=== PATIENT | female | born 1980 | race American Indian/Alaskan Native ===

== ENCOUNTER 2017-09-02 10:52 | Day surgery (SDC) | payer BC ==
--- NOTE | 2017-09-02 10:50 | Discharge Summary ---
Short Stay Discharge Plan Activity: no restrictions Weight Bearing Status: Full Weight Bearing Diet: regular Wound: remove dressing (72hrs) Follow up with: JOHNNA NAVARRO MD [Primary Care Provider] - 6 Weeks WORK,EVA Talley JR, MD [Staff Physician] - 7 Days
--- NOTE | 2017-09-02 10:51 | Short Stay Summary ---
Short Stay Documentation Date of service: 09/02/17 - Allergies and Medications Current Medications: Allergies No Known Allergies Allergy (Verified 08/30/17 14:37) Home Medications Medication Instructions Recorded Confirmed Last Taken Type Levothyroxine [Synthroid] 100 mcg PO QAM 06/13/17 08/30/17 Unknown History - Brief post op/procedure progress note Date of procedure: 09/02/17 Pre-op diagnosis: macromastia Post-op diagnosis: same Procedure: Ray. Breast Reduction Anesthesia: GETA Surgeon: EVA RUBALCAVA JR Estimated blood loss: 50-100ml Specimen disposition: to lab Condition: stable - Disposition Condition at discharge: Good Disposition: DC-01 TO HOME OR SELFCARE Short Stay Discharge Plan Follow up with: EVA RUBALCAVA JR, MD [Staff Physician] - 7 Days JOHNNA NAVARRO MD [Primary Care Provider] - 6 Weeks
--- NOTE | 2017-09-02 12:16 | Anesthesia Consultation ---
Anesthesia Consult and Med Hx Date of service: 09/02/17 - Airway Anesthetic Teeth Evaluation: Good ROM Head & Neck: Adequate Mental/Hyoid Distance: Adequate Mallampati Class: Class I Intubation Access Assessment: Good - Pulmonary Exam CTA: Yes - Cardiac Exam Cardiac Exam: RRR - Pre-Operative Health Status ASA Pre-Surgery Classification: ASA2 Proposed Anesthetic Plan: General - Pulmonary Hx Smoking: Yes (3-4 cigarettes per day, since 16) - Central Nervous System Hx Psychiatric Problems: No - Endocrine Hx Hypothyroidism: Yes - Other Systems Hx Alcohol Use: No Hx Substance Use: No Hx Cancer: No Hx Obesity: Yes - Additional Comments Anesthesia Medical History Comments: Informed consent obtained
--- NOTE | 2017-09-02 12:16 | Anesthesia Day of Surgery ---
Anesthesia Day of Surgery - Day of Surgery Patient Examined: Yes Patient H&P Reviewed: Yes Patient is NPO: Yes
[2017-09-02] MEDS ORDERED: ANCEF/STERILE WATER 2 GM/20 ML IV NR (13:00)
[2017-09-02] MEDS ORDERED: PEPCID IV NR (13:00)
[2017-09-02] MEDS ORDERED: NACL 0.9% 1000 ML 1,000 ML IV SCH (13:00)
[2017-09-02 13:17] LABS: Basophils # (Auto) 0.1 K/mm3 (0.0-0.1); Eosinophils # (Auto) 0.1 K/mm3 (0.0-0.4); Eosinophils % (Auto) 0.8 % (0.0-4.3); Hematocrit 40.2 % (30.3-42.9); Hemoglobin 13.5 gm/dl (10.1-14.3); Lymphocytes # (Auto) 2.4 K/mm3 (1.2-5.4); Lymphocytes % (Auto) 34.9 % (13.4-35.0); Mean Corpuscular HGB Conc 34 % (30-34); Mean Corpuscular Hemoglobin 31 pg (28-32); Mean Corpuscular Volume 94 fl (79-97); Monocytes # (Auto) 0.5 K/mm3 (0.0-0.8); Monocytes % (Auto) 7.4 % (0.0-7.3); Platelet Count 332 K/mm3 (140-440); Red Cell Distribution Width 13.5 % (13.2-15.2)
[2017-09-02] MEDS ORDERED: VERSED ONE (17:10)
[2017-09-02] MEDS ORDERED: DILAUDID ONE ×2 (17:27→17:51)
[2017-09-02] MEDS ORDERED: DIPRIVAN 10 MG/ML IV ONE (17:27)
[2017-09-02] MEDS ORDERED: XYLOCAINE MPF 2% ONE (17:30)
[2017-09-02] MEDS ORDERED: NACL 0.9% 1000 ML 1,000 ML ONE (18:13)
[2017-09-02] MEDS ORDERED: ZOFRAN ONE ×2 (18:26→20:13)
[2017-09-02] MEDS ORDERED: SUBLIMAZE ONE (18:58)
--- NOTE | 2017-09-02 19:15 | Post Anesthesia Evaluation ---
- Post Anesthesia Evaluation Patient Participated: Yes Airway Patent: Yes Stable Respiratory Function: Yes Nausea/Vomiting: No Temp > 96.8F: Yes Pain Manageable: Yes Adequeate Hydration: Yes Anesthesia Complications: No Block Receding Appropriately: Not Applicable Patient on Ventilator: No
[2017-09-02] MEDS: DILAUDID IV PRN ×2 (19:30→19:45)
[2017-09-02] MEDS ORDERED: ZOFRAN IV ONE (20:15)
--- NOTE | 2017-09-02 20:25 | Operative Report ---
PREOPERATIVE DIAGNOSIS: Macromastia. POSTOPERATIVE DIAGNOSIS: Macromastia. PROCEDURE: Bilateral breast reduction with nipple areolar complex amputation. SURGEON: Jose Rojas MD HOSE COUPLING JOINER: Gopi Long CSA FINDINGS: 1100 gm removed from the right breast, 1120 grams removed from the left breast. DESCRIPTION OF PROCEDURE: The patient was brought to the operating room and placed on the table in supine position. Following administration of general anesthesia, bilateral breasts were prepped with Betadine solution, draped in usual sterile manner. A #10 blade scalpel was used to make a circumareolar skin incision, followed by de-epithelization of inferior dermal pedicle. Modified Carrasco pattern skin markings were incised with scalpel, deepened through subcutaneous fat and breast tissue using the electrocautery. Skin flaps were raised in standard manner as was fashioning of an inferior central mound pedicle. Breast tissue was resected inclusive of the nipple areolar complexes bilaterally due to her increased risk of nipple areolar complex loss secondary to smoking. Hemostasis controlled using the electrocautery. Closure was performed over 10-mm Niko drain using interrupted and running subcuticular 2-0 Monocryl sutures. Mastisol, Steri-Strips, and sterile dressings applied. The patient tolerated the procedure well and returned to recovery room in stable condition. JOB# [id number] FTW/NTS
[2017-09-02] MEDS ORDERED: TRANSDERM-SCOP TD ONE (21:18)
[2017-09-02 22:51] VITALS: BP 105/71
== END 2017-09-02 21:30 | disposition home or self-care (01) ==
LOC: OR 10:52
PROVIDERS: ATTEND Plastic Surgery
DX: N62 Hypertrophy of breast (principal); E03.9 Hypothyroidism, unspecified; E66.9 Obesity, unspecified; F17.210 Nicotine dependence, cigarettes, uncomplicated; Z68.31 Body mass index [BMI] 31.0-31.9, adult
CPT/HCPCS: 19318; 36415; 81025; 85025; 88305; J0690; J1170; J2250; J2405; J2704; J3010; J7030

== ENCOUNTER 2017-12-02 05:42 | Day surgery (SDC) | payer BC ==
[2017-12-02] MEDS ORDERED: NACL BACTERIOSTATIC INFILTRATI ONE (06:49)
[2017-12-02] MEDS ORDERED: ANCEF/STERILE WATER 2 GM/20 ML IV NR (07:00)
--- NOTE | 2017-12-02 07:26 | Anesthesia Day of Surgery ---
Anesthesia Day of Surgery - Day of Surgery Patient Examined: Yes Patient H&P Reviewed: Yes Patient is NPO: Yes
--- NOTE | 2017-12-02 07:26 | Anesthesia Consultation ---
Anesthesia Consult and Med Hx Date of service: 12/02/17 - Airway Anesthetic Teeth Evaluation: Good ROM Head & Neck: Adequate Mental/Hyoid Distance: Adequate Mallampati Class: Class I Intubation Access Assessment: Good - Pulmonary Exam CTA: Yes - Cardiac Exam Cardiac Exam: RRR - Pre-Operative Health Status ASA Pre-Surgery Classification: ASA2 Proposed Anesthetic Plan: General - Pulmonary Hx Smoking: Yes (3-4CIG/DAYS SINCE AGE 16) - Central Nervous System Hx Psychiatric Problems: No - Endocrine Hx Hypothyroidism: Yes - Other Systems Hx Alcohol Use: No Hx Substance Use: No Hx Cancer: No Hx Obesity: Yes - Additional Comments Anesthesia Medical History Comments: Informed consent obtained
[2017-12-02] MEDS ORDERED: DIPRIVAN 10 MG/ML IV ONE (07:27)
[2017-12-02] MEDS ORDERED: SUBLIMAZE ONE (07:27)
[2017-12-02] MEDS ORDERED: XYLOCAINE MPF 2% ONE (07:29)
[2017-12-02] MEDS ORDERED: ZOFRAN ONE (07:29)
[2017-12-02] MEDS ORDERED: NACL 0.9% 1000 ML 1,000 ML IV SCH (08:00)
[2017-12-02] MEDS ORDERED: PEPCID IV NR (08:00)
[2017-12-02] MEDS ORDERED: VERSED IV NR (08:00)
[2017-12-02] MEDS ORDERED: TRANSDERM-SCOP TD NR (08:00)
[2017-12-02] MEDS ORDERED: NEO SYNEPHRINE/NS Syringe(OR USE) IV ONE (08:32)
--- NOTE | 2017-12-02 08:33 | Discharge Summary ---
Short Stay Discharge Plan Activity: no restrictions Weight Bearing Status: Full Weight Bearing Wound: remove dressing (5 days) Follow up with: EZIO JOHNSON [Other] - 6 Weeks WORK,EVA Talley JR, MD [Staff Physician] - 7 Days
--- NOTE | 2017-12-02 08:34 | Short Stay Summary ---
Short Stay Documentation Date of service: 12/02/17 - Allergies and Medications Current Medications: Allergies No Known Allergies Allergy (Verified 11/27/17 15:48) Home Medications Medication Instructions Recorded Confirmed Last Taken Type Levothyroxine [Synthroid] 100 mcg PO QAM 06/13/17 12/02/17 12/01/17 08:30 History Active Medications Cefazolin Sodium (Ancef/Sterile Water 2 Gm/20 Ml) 2 gm IV PREOP NR Stop: 12/02/17 23:45 Famotidine (Pepcid) 20 mg IV PREOP NR Stop: 12/02/17 12:00 Last Admin: 12/02/17 07:44 Dose: 20 mg Hydromorphone HCl (Dilaudid) 0.5 mg IV Q10MIN PRN PRN Reason: Pain , Severe (7-10) Stop: 12/02/17 13:00 Sodium Chloride (Nacl 0.9% 1000 Ml) 1,000 mls @ 100 mls/hr IV DIRECT KASHMIR Last Admin: 12/02/17 07:43 Dose: 100 mls/hr Midazolam HCl (Versed) 2 mg IV PREOP NR Stop: 12/02/17 23:59 Last Admin: 12/02/17 08:07 Dose: 2 mg Scopolamine (Transderm-Scop) 1 each TD PREOP NR Stop: 12/02/17 23:59 Last Admin: 12/02/17 07:43 Dose: 1 each - Brief post op/procedure progress note Date of procedure: 12/02/17 Pre-op diagnosis: Ray. Acquired Breast Deformity & Absence 0f Nipples Post-op diagnosis: same Procedure: Ray. Nipple Reconstruction Anesthesia: GETA Surgeon: EVA RUBALCAVA JR Estimated blood loss: minimal Pathology: none Specimen disposition: to lab Condition: stable - Disposition Condition at discharge: Good Disposition: DC-01 TO HOME OR SELFCARE Short Stay Discharge Plan Follow up with: EZIO JOHNSON [Other] - 6 Weeks EVA RUBALCAVA JR, MD [Staff Physician] - 7 Days
--- NOTE | 2017-12-02 09:37 | Operative Report ---
PREOPERATIVE DIAGNOSES: 1. Bilateral absence of nipples. 2. Bilateral acquired breast deformity. 3. Status post bilateral breast reduction with nipple amputation. POSTOPERATIVE DIAGNOSES: 1. Bilateral absence of nipples. 2. Bilateral acquired breast deformity. 3. Status post bilateral breast reduction with nipple amputation. PROCEDURE: Bilateral nipple reconstruction. SURGEON: Jose Rojas MD PHYS ASST: Gopi Long CSA. DESCRIPTION OF PROCEDURE: The patient was brought to the operating room and placed on the table in supine position. Following administration of general anesthesia, bilateral breasts were prepped with Betadine solution and draped in the usual sterile manner. A #11 blade scalpel was used to incise preoperative markings for a flag shaped flap elevated in standard manner, folded around upon itself to form a cylinder using interrupted 3-0 Monocryl sutures. Donor site closed with interrupted and running subcuticular 2-0 and 3-0 Monocryl sutures. Prior to closure, a dermal bridge was de-epithelialized upon which the nipple areolar complex rested. The patient tolerated procedure well and returned to recovery room in stable condition. JOB# [id number] FTW/NTS
[2017-12-02] MEDS: DILAUDID IV PRN ×4 (10:05→10:40)
[2017-12-02 11:15] VITALS: BP 128/81
--- NOTE | 2017-12-02 14:07 | Post Anesthesia Evaluation ---
- Post Anesthesia Evaluation Patient Participated: Yes Airway Patent: Yes Stable Respiratory Function: Yes Nausea/Vomiting: No Temp > 96.8F: Yes Pain Manageable: Yes Adequeate Hydration: Yes Anesthesia Complications: No
== END 2017-12-02 11:43 | disposition home or self-care (01) ==
LOC: OR 05:42
PROVIDERS: ATTEND Plastic Surgery
DX: N64.89 Other specified disorders of breast (principal); F17.210 Nicotine dependence, cigarettes, uncomplicated; Z90.13 Acquired absence of bilateral breasts and nipples; E03.9 Hypothyroidism, unspecified; Z82.61 Family history of arthritis; Z80.41 Family history of malignant neoplasm of ovary; Z82.49 Family history of ischemic heart disease and other diseases of the circulatory system
CPT/HCPCS: 19350; 81025; J0690; J1170; J2250; J2370; J2405; J2704; J3010; J7030